=== PATIENT | male | born 2000 | race Caucasian/White ===

== ENCOUNTER 2022-01-23 10:31 | Emergency (ER) | payer OTHER ==
[~2022-01-23] VITALS: Ht 177.8 cm; Wt 100.0 kg
[2022-01-23] MEDS ORDERED: BACI28.43 TOP (13:18)
[2022-01-23 13:28] VITALS: BP 135/66
== END 2022-01-23 13:30 | disposition home or self-care (01) ==
LOC: M ED 10:31
DX: S61.301A Unspecified open wound of left index finger with damage to nail, initial encounter (principal); W31.89XA Contact with other specified machinery, initial encounter; Y99.0 Civilian activity done for income or pay